=== PATIENT | female | born 2000 | race Two or more races ===

== ENCOUNTER 2024-03-27 22:57 | Emergency (ER) | payer OTHER ==
[~2024-03-27] VITALS: Ht 157.5 cm; Wt 68.0 kg
[2024-03-28] MEDS ORDERED: KETOROLAC TROMETHAMINE 60 MG VIAL IM STA (00:12)
[2024-03-28 00:32] LABS: HEMATOCRIT 33.5 % (36.0-45.00); HEMOGLOBIN 11.4 g/dL (12.0-15.00); MEAN CELL VOLUME 84.2 fL (80.00-100.00); MEAN CORPUSCULAR HEMOGLOBIN 28.6 pg (27.00-32.0); MEAN CORPUSCULAR HGB CONC 33.9 g/dl (32.0-36.0); PLATELET COUNT 248 K/uL (150-450); RED BLOOD COUNT 3.98 M/uL (4.00-6.00)
[2024-03-28 00:56] LABS: CALCIUM 8.8 mg/dL (8.5-10.1); CREATININE SERUM 0.68 mg/dL (0.55-1.02); GFR 106.3; POTASSIUM 3.81 mEq/L (3.5-5.1)
[2024-03-28 06:32] LABS: URINE APPEARANCE Clear; URINE BILIRRUBIN Negative (NEGATIVE); URINE BLOOD Moderate; URINE COLOR Yellow; URINE GLUCOSE Negative (NEGATIVE); URINE KETONE Trace (NEGATIVE); URINE LEUKOCYTE Negative; URINE NITRATE Negative; URINE PROTEIN Negative (NEGATIVE); URINE UROBILINOGEN 0.2 E.U./dl
[2024-03-28 06:34] LABS: URINE BACTERIA 1126.1 uL (0.0-1933); URINE EPITHELIAL CELLS 16.8 uL (0.0-38.8); URINE RBC 3.8 uL (0.0-20.8); URINE WBC 20.5 uL (0.0-23.2)
== END 2024-03-28 08:09 | disposition home or self-care (01) ==
LOC: ER 22:59
PROVIDERS: General Practice
DX: N93.9 Abnormal uterine and vaginal bleeding, unspecified (principal); R10.2 Pelvic and perineal pain; R10.9 Unspecified abdominal pain